=== PATIENT | female | born 1990 | race Two or more races ===

== ENCOUNTER 2024-03-24 00:21 | Emergency (ER) | payer OTHER ==
[~2024-03-24] VITALS: Ht 162.6 cm; Wt 74.8 kg
[2024-03-24] MEDS ORDERED: ACETAMINOPHEN 500 MG GEL..CAP PO ONE ×2 (01:23→01:30)
[2024-03-24] MEDS ORDERED: LIDOCAINE HCL 1% 10ML VIAL ONE (01:47)
[2024-03-24] MEDS ORDERED: TETANUS & DIPHTHERIA TOX,ADULT 0.5 ML VIAL IM STA (02:04)
[2024-03-24] MEDS ORDERED: TETANUS DIPHTHERIA TOX. ADSOR 5 ML VIAL IM ONE (02:06)
[2024-03-24] MEDS ORDERED: KETO10TA2 PO (02:16)
[2024-03-24] MEDS ORDERED: CEPHALEXIN500 MG PO (02:16)
== END 2024-03-24 02:19 ==
LOC: ER 00:23
DX: S01.121A Laceration with foreign body of right eyelid and periocular area, initial encounter (principal); W20.8XXA Other cause of strike by thrown, projected or falling object, initial encounter; Y93.I9 Activity, other involving external motion; Y92.413 State road as the place of occurrence of the external cause